=== PATIENT | female | born 1990 | race African-American/Black ===

== ENCOUNTER 2021-05-13 14:56 | Emergency (ER) | payer SELFPAY ==
[2021-05-13] MEDS ORDERED: Ketorolac Tromethamine 30 MG/ML VIAL ONE (15:32)
== END 2021-05-13 15:52 | disposition home or self-care (01) ==
LOC: CSHERS 14:56
DX: S93.402A Sprain of unspecified ligament of left ankle, initial encounter (principal); W01.0XXA Fall on same level from slipping, tripping and stumbling without subsequent striking against object, initial encounter
CPT/HCPCS: 96374; J1885

== ENCOUNTER 2022-12-14 08:53 | Emergency (ER) | payer SELFPAY ==
[2022-12-14 10:20] LABS: Bilirubin Neg (Negative); Blood, Urine Negative (Negative); Clarity Clear (Clear); Glucose, Urine (Dipstick) Normal (Negative); Ketone, Urine Negative (Negative); Leukocyte 100 (Negative); Nitrite Negative (Negative); Protein, Urine (Dipstick) Negative (Neg-Trace); Specific Gravity, Urine 1.005 (1.005-1.030); Urobilinogen Normal mg/dL (Less than 2)
[2022-12-14 10:35] LABS: Bacteria/HPF 1+ HPF (None Seen); CAUTI Indications for Culture Pregnancy; RBC/HPF 0-3 HPF (0-3)
[2022-12-14 10:37] LABS: Urine Culture Reflex Yes Yes
== END 2022-12-14 12:59 | disposition home or self-care (01) ==
LOC: CSHERS 08:53
DX: O23.92 Unspecified genitourinary tract infection in pregnancy, second trimester (principal); R82.71 Bacteriuria; F17.210 Nicotine dependence, cigarettes, uncomplicated; Z3A.23 23 weeks gestation of pregnancy
CPT/HCPCS: 76815; 81001; 84702; 87086

== ENCOUNTER 2023-03-12 11:05 | Day surgery (SDC) | payer MEDICAID ==
[2023-03-12 11:26] VITALS: BMI 45.8
[2023-03-12] MEDS ORDERED: hydrALAZINE 20 MG/ML VIAL SLOW IVP PRN (11:37)
[2023-03-12] MEDS ORDERED: Acetaminophen 500 MG TAB PO SCH (12:00)
[2023-03-12 12:14] LABS: #Eosinphils 0.1 10x3/uL (0.0-0.5); #Monocytes 0.7 10x3/uL (0.0-1.1); #Neutrophils 8.1 10x3/uL (1.5-8.4); %Basophils 0.3 % (0.0-2.0); %Eosinophils 0.8 % (0.0-6.0); %Monocytes 6.1 % (0.0-10.0); %Neutrophils 72.3 % (40.0-75.0); Hematocrit 32.3 % (34.9-44.5); Mean Corpuscular HGB CONC 34.1 g/dL (32.0-36.0); Mean Corpuscular Hemoglobin 31.4 pg (27.0-33.0); Mean Corpuscular Volume 92.3 fl (81.6-98.3); Mean Platelet Volume 9.1 fl (7.4-10.4); Platelet Count 383 10x3/uL (150-450); White Blood Cell (WBC) Count 11.1 10x3/uL (3.5-10.5)
[2023-03-12 12:29] LABS: Protein, Urine Random Quant Less than 10 mg/dL (1-14)
[2023-03-12 12:35] LABS: ALT (SGPT) 14 U/L (8-55); AST (SGOT) 18 U/L (5-34); Albumin 3.1 g/dL (3.5-5.0); Alkaline Phosphatase 122 U/L (40-110); Anion Gap 13 mmol/L (10-20); BUN (Urea Nitrogen) 5 mg/dL (7.0-18.7); Bilirubin, Total 0.3 mg/dL (0.2-1.2); Calc. Creatinine Clearance 206 mL/min (70-130); Calcium 9.1 mg/dL (7.8-10.44); Carbon Dioxide 22 mmol/L (22-29); Chloride 105 mmol/L (98-107); Estimated GFR 113; Glucose 88 mg/dL (70-105); Potassium 3.9 mmol/L (3.5-5.1); Protein, Total 6.1 g/dL (6.0-8.3); Sodium 136 mmol/L (136-145)
[2023-03-12 12:52] LABS: Creatinine, Urine 80.09 mg/dL (47-110)
== END 2023-03-12 13:18 | disposition home or self-care (01) ==
LOC: CSHLD/OP 11:05
PROVIDERS: ATTEND Obstetrics & Gynecology
DX: O13.3 Gestational [pregnancy-induced] hypertension without significant proteinuria, third trimester (principal); O99.213 Obesity complicating pregnancy, third trimester; E66.9 Obesity, unspecified; O34.211 Maternal care for low transverse scar from previous cesarean delivery; Z79.82 Long term (current) use of aspirin; Z79.899 Other long term (current) drug therapy; Z3A.36 36 weeks gestation of pregnancy
CPT/HCPCS: 36415; 80053; 82570; 84156; 85025; 99284

== ENCOUNTER 2023-03-19 09:48 | Inpatient (IN) | payer MEDICAID, OTHER ==
[2023-03-18 14:26] LABS: Hematocrit 32.5 % (34.9-44.5); Hemoglobin 11.3 g/dL (12.0-15.5); Platelet Count 433 10x3/uL (150-450)
[2023-03-18 14:53] LABS: HBSAg Index 0.22 S/CO (0-0.99); Hep B Surf Ag Non-Reactive S/CO (NonReactive)
[2023-03-18 14:56] LABS: Syphilis Antibody Nonreactive (Nonreactive); Syphilis Antibody Index 0.07 S/CO (<1.00 Non-Reactive)
[2023-03-19] MEDS ORDERED: CEFAZOLIN 2 GM in Sodium Chloride 0.9% 100 ML IVPB SCH (11:15)
[2023-03-19] MEDS ORDERED: Misoprostol 200 MCG TAB PR PRN ×3 (11:15→17:23)
[2023-03-19] MEDS ORDERED: Promethazine HCl 25 MG/ML VIAL IM PRN ×2 (11:15→14:08)
[2023-03-19] MEDS ORDERED: Tranexamic Acid 1,000 MG/10 ML VIAL IVP PRN (11:15)
[2023-03-19] MEDS ORDERED: Carboprost 250 MCG/ML AMP IM PRN (11:15)
[2023-03-19] MEDS ORDERED: Oxytocin 30 units/NS 500 ML 500 ML IV SCH ×3 (11:15→17:23)
[2023-03-19] MEDS ORDERED: Lactated Ringer's 1,000 ML IV SCH ×2 (11:15→14:00)
[2023-03-19] MEDS ORDERED: hydrALAZINE 20 MG/ML VIAL SLOW IVP PRN ×3 (11:15→17:23)
[2023-03-19] MEDS ORDERED: Bicitra 30 ML UDCUP PO PRN (11:15)
[2023-03-19] MEDS ORDERED: Famotidine/PF 20 mg/2ml Vial SLOW IVP PRN (11:15)
[2023-03-19] MEDS ORDERED: Ondansetron PF 4 MG/2 ML Vial IVP PRN ×5 (11:15→17:23)
[2023-03-19] MEDS ORDERED: Azithromycin 500 MG in Sodium Chloride 0.9% 250 ML 250 ML IVPB SCH (11:15)
[2023-03-19] MEDS ORDERED: Morphine PF 10 MG/10 ML VIAL ONE (11:47)
[2023-03-19] MEDS ORDERED: PHENYLEPHRINE-NS 100 MCG/ML 10 ML SYRINGE ONE ×2 (11:47→12:42)
[2023-03-19] MEDS ORDERED: Ondansetron PF 4 MG/2 ML Vial ONE (11:47)
[2023-03-19] MEDS ORDERED: Oxytocin 10 UNITS/ML VIAL ONE (11:51)
[2023-03-19] MEDS ORDERED: Midazolam HCl 2 mg/2 ml Vial ONE (13:03)
[2023-03-19] MEDS ORDERED: fentaNYL 50 mcg/mL 1 mL Vial ONE (13:03)
[2023-03-19] MEDS ORDERED: Boostrix 0.5 ML (Tdap) VIAL (>/=7 yrs of age) IM ONE (13:59)
[2023-03-19] MEDS ORDERED: HYDROcodone/Acetaminophen 5/325 mg Tablet PO PRN (13:59)
[2023-03-19] MEDS ORDERED: Simethicone Chewable 80 MG TAB PO PRN (13:59)
[2023-03-19] MEDS ORDERED: Acetaminophen 325 MG TAB PO PRN (13:59)
[2023-03-19] MEDS ORDERED: Ibuprofen 800 MG TAB PO SCH (14:00)
[2023-03-19] MEDS ORDERED: Moisturizing Cream (Eucerin) 113 GM JAR TOP PRN (14:08)
[2023-03-19] MEDS ORDERED: fentaNYL 50 mcg/mL 1 mL Vial SLOW IVP PRN (14:08)
[2023-03-19] MEDS ORDERED: Naloxone HCl 0.4 mg/ml Vial IVP PRN ×2 (14:08)
[2023-03-19] MEDS ORDERED: Meperidine HCl/PF 25 MG/ML VIAL SLOW IVP PRN (14:08)
[2023-03-19] MEDS ORDERED: Naloxone HCl 0.4 mg/ml Vial IV PRN (14:08)
[2023-03-19] MEDS ORDERED: Promethazine HCl 25 MG SUPP PR PRN (14:08)
[2023-03-19] MEDS ORDERED: Ketorolac Tromethamine 30 MG/ML VIAL IVP SCH (14:15)
[2023-03-19] MEDS ORDERED: Communication Order-Pharmacy FS SCH (14:15)
[2023-03-19] MEDS ORDERED: Lanolin Ointment 7 GM TUBE TOP PRN (17:23)
[2023-03-19] MEDS: Ketorolac Tromethamine 30 MG/ML VIAL IVP PRN (18:17)
[2023-03-19] MEDS: diphenhydrAMINE 50 MG/ML VIAL IVP PRN (18:37)
[2023-03-19] MEDS: Acetaminophen 325 MG TAB PO SCH (18:37)
[2023-03-19] MEDS: Docusate 100 MG CAP PO SCH (19:58)
[2023-03-19] MEDS: Ferrous Sulfate 325 MG TAB PO SCH (19:58)
[2023-03-19] MEDS ORDERED: Docusate 100 MG CAP PO SCH (21:00)
[2023-03-19] MEDS ORDERED: Ferrous Sulfate 325 MG TAB PO SCH (21:00)
[2023-03-19] MEDS: diphenhydrAMINE 25 MG CAP PO PRN (22:37)
[2023-03-20] MEDS: Ketorolac Tromethamine 30 MG/ML VIAL IVP PRN (00:41)
[2023-03-20] MEDS: HYDROcodone/Acetaminophen 5/325 mg Tablet PO PRN ×4 (03:10→21:12)
[2023-03-20] MEDS: diphenhydrAMINE 25 MG CAP PO PRN ×3 (03:10→21:23)
[2023-03-20] MEDS: Acetaminophen 325 MG TAB PO SCH ×2 (03:13→20:47)
[2023-03-20 05:34] LABS: Hematocrit 27.6 % (34.9-44.5); Hemoglobin 9.4 g/dL (12.0-15.5); Mean Corpuscular HGB CONC 34.1 g/dL (32.0-36.0); Mean Corpuscular Hemoglobin 31.9 pg (27.0-33.0); Mean Corpuscular Volume 93.6 fl (81.6-98.3); Mean Platelet Volume 9.1 fl (7.4-10.4); Platelet Count 339 10x3/uL (150-450); Red Blood Cell (RBC) Count 2.95 10x6/uL (3.90-5.03)
[2023-03-20] MEDS: Prenatal Vitamin 1 TAB PO SCH (08:53)
[2023-03-20] MEDS: Docusate 100 MG CAP PO SCH ×2 (08:54→21:11)
[2023-03-20] MEDS: Ferrous Sulfate 325 MG TAB PO SCH ×2 (08:54→21:12)
[2023-03-20] MEDS ORDERED: Prenatal Vitamin 1 TAB PO SCH (09:00)
[2023-03-20] MEDS: Ibuprofen 800 MG TAB PO SCH ×2 (12:19→21:12)
[2023-03-20] MEDS: Simethicone Chewable 80 MG TAB PO PRN ×2 (12:22→21:12)
[2023-03-20] MEDS: diphenhydrAMINE 50 MG/ML VIAL IVP PRN (21:23)
[2023-03-21] MEDS: Acetaminophen 325 MG TAB PO SCH ×3 (03:41→18:52)
[2023-03-21] MEDS: Simethicone Chewable 80 MG TAB PO PRN ×4 (04:12→22:04)
[2023-03-21] MEDS: diphenhydrAMINE 25 MG CAP PO PRN (04:12)
[2023-03-21] MEDS: Ibuprofen 800 MG TAB PO SCH ×3 (04:12→22:04)
[2023-03-21] MEDS: HYDROcodone/Acetaminophen 5/325 mg Tablet PO PRN ×5 (04:12→22:10)
[2023-03-21 04:32] LABS: Hematocrit 28.8 % (34.9-44.5); Hemoglobin 9.4 g/dL (12.0-15.5); Mean Corpuscular HGB CONC 32.6 g/dL (32.0-36.0); Mean Corpuscular Hemoglobin 30.4 pg (27.0-33.0); Mean Corpuscular Volume 93.2 fl (81.6-98.3); Mean Platelet Volume 8.9 fl (7.4-10.4); Platelet Count 374 10x3/uL (150-450); RBC Distribution Width 12.2 % (11.5-14.5); Red Blood Cell (RBC) Count 3.09 10x6/uL (3.90-5.03); White Blood Cell (WBC) Count 9.3 10x3/uL (3.5-10.5)
[2023-03-21] MEDS: Prenatal Vitamin 1 TAB PO SCH (09:54)
[2023-03-21] MEDS: Ferrous Sulfate 325 MG TAB PO SCH ×2 (09:54→22:03)
[2023-03-21] MEDS: Docusate 100 MG CAP PO SCH ×2 (09:54→22:04)
[2023-03-21] MEDS: Senokot S 8.6-50 MG TAB PO SCH ×2 (09:54→22:04)
[2023-03-21] MEDS: Polyethylene Glycol 3350 17 GM Packet PO SCH (09:55)
[2023-03-22] MEDS: Ibuprofen 800 MG TAB PO SCH ×2 (04:38→13:53)
[2023-03-22] MEDS: HYDROcodone/Acetaminophen 5/325 mg Tablet PO PRN ×4 (04:39→18:03)
[2023-03-22] MEDS: diphenhydrAMINE 25 MG CAP PO PRN (04:40)
[2023-03-22] MEDS: Acetaminophen 325 MG TAB PO SCH ×3 (04:47→18:03)
[2023-03-22 07:58] VITALS: BP 121/69; TEMP 98.5
[2023-03-22] MEDS: Docusate 100 MG CAP PO SCH (09:24)
[2023-03-22] MEDS: Prenatal Vitamin 1 TAB PO SCH (09:27)
[2023-03-22] MEDS: Ferrous Sulfate 325 MG TAB PO SCH (09:27)
[2023-03-22] MEDS: Senokot S 8.6-50 MG TAB PO SCH (09:27)
[2023-03-22] MEDS: Polyethylene Glycol 3350 17 GM Packet PO SCH (09:28)
== END 2023-03-22 18:09 | disposition home or self-care (01) | DRG 785 ==
LOC: CSHLD 09:48 → CSHPP 16:30 → CSHANTE 03-22 11:48
PROVIDERS: ADMIT Obstetrics & Gynecology; ATTEND Obstetrics & Gynecology
PROC: 10D00Z1 Extraction of Products of Conception, Low, Open Approach (ICD-10-PCS; principal; 2023-03-19)
PROC: 0UB70ZZ Excision of Bilateral Fallopian Tubes, Open Approach (ICD-10-PCS; 2023-03-19)
DX: O34.211 Maternal care for low transverse scar from previous cesarean delivery (principal); Z37.0 Single live birth; Z3A.37 37 weeks gestation of pregnancy; E66.9 Obesity, unspecified; O99.214 Obesity complicating childbirth; D25.9 Leiomyoma of uterus, unspecified; O99.892 Other specified diseases and conditions complicating childbirth; O13.4 Gestational [pregnancy-induced] hypertension without significant proteinuria, complicating childbirth; Z30.2 Encounter for sterilization; K59.00 Constipation, unspecified; O99.63 Diseases of the digestive system complicating the puerperium
CPT/HCPCS: 36415; 51702; 85014; 85018; 85027; 85049; 86780; 86850; 86900; 86901; 87340; 88302; J0456; J1200; J1650; J1885; J2250; J2274; J2405; J3010; J3490; J7050; S0028

== ENCOUNTER 2024-05-25 17:12 | Emergency (ER) | payer OTHER, SELFPAY ==
[~2024-05-25 17:12] MED LIST: Iopamidol 300 61% 100 ML VIAL FS ONE
[2024-05-25] MEDS ORDERED: Ondansetron PF 4 MG/2 ML Vial ONE (18:11)
[2024-05-25] MEDS ORDERED: Morphine 4 MG/ML VIAL ONE (18:11)
[2024-05-25 18:31] LABS: Bilirubin Neg (Negative); Blood, Urine Negative (Negative); Clarity Clear (Clear); Glucose, Urine (Dipstick) Normal (Negative); Ketone, Urine Negative (Negative); Leukocyte Negative (Negative); Nitrite Negative (Negative); Protein, Urine (Dipstick) Negative (Neg-Trace); Urobilinogen Normal mg/dL (Less than 2); pH, Urine 6.5 (5.0-9.0)
[2024-05-25 18:35] LABS: #Basophils Less than 0.03 10x3/uL (0.0-0.2); #Eosinophils 0.04 10x3/uL (0.0-0.5); #Monocytes 0.35 10x3/uL (0.0-1.1); #Neutrophils 14.22 10x3/uL (1.5-8.4); %Basophils 0.1 % (0.0-2.0); %Eosinophils 0.3 % (0.0-6.0); %Lymphocytes 6.9 % (18.0-47.0); %Monocytes 2.2 % (0.0-10.0); %Neutrophils 90.1 % (40.0-75.0); Hematocrit 36.3 % (34.9-44.5); Hemoglobin 11.8 g/dL (12.0-15.5); Mean Corpuscular HGB CONC 32.5 g/dL (32.0-36.0); Mean Corpuscular Hemoglobin 31.7 pg (27.0-33.0); Mean Corpuscular Volume 97.6 fL (81.6-98.3); Mean Platelet Volume 8.6 fL (7.4-10.4); Platelet Count 343 10x3/uL (150-450); RBC Distribution Width 12.6 % (11.5-14.5); Red Blood Cell (RBC) Count 3.72 10x6/uL (3.90-5.03); White Blood Cell (WBC) Count 15.78 10x3/uL (3.5-10.5)
[2024-05-25 18:42] LABS: BHCG - Serum Negative (NEGATIVE); Pregs Control Background? CLEAR/WHITE (CLR/WHITE); Pregs Control Bar Appear? YES (CONTROL BAR)
[2024-05-25 18:46] LABS: ALT (SGPT) 13 U/L (Less than 34); AST (SGOT) 21 U/L (11-34); Albumin 3.6 g/dL (3.1-4.5); Alkaline Phosphatase 60 U/L (40-110); Anion Gap 10 mmol/L (10-20); BUN (Urea Nitrogen) 13 mg/dL (7.0-18.7); Bilirubin, Total 0.4 mg/dL (0.3-1.2); Calc. Creatinine Clearance 0 mL/min (70-130); Calcium 8.7 mg/dL (7.8-10.44); Carbon Dioxide 26 mmol/L (22-29); Chloride 108 mmol/L (98-107); Estimated GFR 88; Globulin 2.8 g/dL (2.4-3.5); Glucose 98 mg/dL (70-105); Lipase 18 U/L (8-78); Potassium 3.9 mmol/L (3.5-5.1); Protein, Total 6.4 g/dL (6.0-8.3); Sodium 140 mmol/L (136-145)
[2024-05-25 18:58] LABS: Bacteria/HPF Rare-Few HPF (None Seen); CAUTI Indications for Culture Pelvic or flank pain; RBC/HPF 0-3 HPF (0-3); Squamous Epithelial 0-3 HPF (0-3); WBC/HPF None Seen HPF (0-3)
[2024-05-25 18:59] LABS: Urine Culture Reflex No No
[2024-05-25] MEDS ORDERED: Lidocaine 1% (PF) 30 ML VIAL ONE (20:44)
[2024-05-25] MEDS ORDERED: Ketorolac Tromethamine 30 MG (1 mL) VIAL ONE (21:02)
== END 2024-05-25 22:17 | disposition home or self-care (01) ==
LOC: CSHERS 17:12
DX: N76.4 Abscess of vulva (principal); N76.2 Acute vulvitis; F17.210 Nicotine dependence, cigarettes, uncomplicated
CPT/HCPCS: 36415; 56405; 72193; 80053; 81001; 83605; 83690; 84703; 85025; 96374; 96375; J1885; J2270; J2405; Q9967